=== PATIENT | female | born 1990 | race Caucasian/White ===

== ENCOUNTER 2021-04-03 11:20 | Emergency (ER) | payer OTHER, SELFPAY ==
[2021-04-03] VITALS (9 sets, daily range): BP systolic 102–116; BP diastolic 68–90; PULSE 62–81; RESP 16–18; TEMP 36.6; O2SAT 97–100
--- NOTE | ~2021-04-03 | XR_ITS ---
EXAMINATION: XR chest 1V portable DATE: 04/03/2021 11:53 INDICATION: Left-sided chest pain, tightness and shortness of breath TECHNIQUE: frontal view of the chest was obtained. COMPARISON: Chest radiograph dated 09/10/2019 FINDINGS: The lungs remain clear with no focal airspace opacities, pulmonary edema, pleural effusion or pneumot horax. The cardiomediastinal silhouette is normal. Visualized bones and soft tissues are unremarkable . IMPRESSION: 1. No acute cardiopulmonary disease. Reviewed, dictated and finalized at location A.
--- NOTE | 2021-04-03 11:34 | ECG_ITS ---
Measurements Intervals [place] Rate: 69 P: 12 DE: 122 QRS: 42 QRSD: 105 T: 5 QT: 384 QTc: 414 Interpretive Statements SINUS RHYTHM BORDERLINE T WAVE ABNORMALITY- ANT/INF LEADS BASELINE ARTIFACT- V3-V4 BORDERLINE ECG Electronically Signed On 04-03-2021 12:28:52 CDT by Skyler Harrington D.O.
[2021-04-03 11:53] LABS: Basophils Percent Auto 0.4 % (0.2-1.2); Eosinophils Absolute Auto 0.2 K/mm3 (0-0.3); Eosinophils Percent Auto 2.6 % (0-4.4); Hematocrit 46.4 % (37.0-47.0); Hemoglobin 15.8 g/dL (12.0-15.0); Immature Granulocyte Absolute 0.07 K/mm3 (0.00-0.031); Lymphocytes Absolute Auto 1.87 K/mm3 (0.9-3.2); Lymphocytes Percent Auto 26.6 % (18.3-44.2); Mean Corpuscular HGB Conc 34.1 g/dl (32-36); Mean Corpuscular Hemoglobin 30.2 pg (26-34); Mean Corpuscular Volume 88.7 fl (80-100); Mean Platelet Volume 10.3 fl (7.4-10.4); Monocytes Absolute Auto 0.5 K/mm3 (0.1-0.6); Monocytes Percent Auto 6.8 % (2.6-8.5); Neutrophils Absolute Auto 4.4 K/mm3 (1.3-6.7); Neutrophils Percent Auto 62.6 % (45.5-73.1); Platelet Count Result 228 k/mm3 (150-375); Red Blood Count 5.23 M/mm3 (4.2-5.4); Red Cell Distribution Width 12.4 % (11.5-14.5)
[2021-04-03 11:55] LABS: Add Urine Microscopic? NO; Appearance Urine Clear (Clear); Bilirubin Urine Negative (Negative); Blood Urine Negative (Negative); Color Urine Straw (Yellow); Glucose Urine UA Negative (Negative); Ketones Urine Negative (Negative); Leukocyte Esterase Ur Negative LEU/UL (Negative); Nitrate Urine Negative (Negative); Protein Urine Negative (Negative); Specific Grav Ur 1.009 (1.001-1.035); Urobilinogen Urine Negative mg/dL (<2.0)
[2021-04-03 12:03] LABS: Alanine Aminotransferase 23 U/L (4-35); Albumin Level 4.9 g/dL (3.5-5.1); Alkaline Phosphatase 82 U/L (38-126); Anion Gap 9 mmol/L (8-16); Aspartate Amino Transferase 27 U/L (14-36); Bilirubin,Total 0.5 mg/dL (0.2-1.3); Blood Urea Nitrogen 9 mg/dL (7-17); Calcium 10.3 mg/dL (8.4-10.2); Carbon Dioxide 24 mmol/L (22-30); Chloride 106 mmol/L (98-107); Estimated CRCL calculation 121 ml/min; Estimated Glomerular Filt Rate > 60; Glucose 78 mg/dL (65-105); Potassium 3.4 mmol/L (3.4-5.0); Sodium 139 mmol/L (137-145)
[2021-04-03 12:15] LABS: Troponin I < 0.012 ng/mL (0.000-0.034)
--- NOTE | 2021-04-03 12:23 | ED.GENADULT ---
HPI - General Adult General Chief complaint: Chest Pain Stated complaint: [email or web address] Time Seen by Provider: 04/03/21 11:24 Source: patient History of Present Illness HPI narrative: Patient is a 30 y/o female complaining of left sided chest pain for about 1 week. She describes her pain a pressure and rates it as 4-5/10. There is no alleviating or exacerbating factor. There is no pain radiation. She also has nasal congestion, cough, SOB and loss of taste and smell. She has not been vaccinated against COVID. She was tested for COVID last week and it was negative. Related Data Allergies Allergy/AdvReac Type Severity Reaction Status Date / Time hydromorphone AdvReac Agitated Verified 04/03/21 11:40 Review of Systems Constitutional: Constitutional: Denies chills, Denies fever(s), Denies headache(s) and Denies weakness Eyes: Eyes: Denies blurry vision ENT: Denies headache(s), Reports nasal congestion and Denies neck pain Cardiovascular: Cardiovascular: Reports chest pain and Reports dyspnea Respiratory: Respiratory: Reports cough and Reports dyspnea Gastrointestinal: Gastrointestinal: Denies abdominal pain, Denies diarrhea, Denies nausea and Denies vomiting Genitourinary: Genitourinary: Denies hematuria and Denies dysuria Musculoskeletal: Musculoskeletal: Denies back pain and Denies neck pain Neurologic: Denies headache(s) and Denies weakness PMFSH Past Medical History Medical History Migraine Trichomoniasis Surgical History Surgical History Hx of cholecystectomy Social History Social History Smoking packs per day: 1 Smoking cigarettes per day: 20.0 Smoking status: Current every day smoker Gender identity (if verbalized by the patient): Female Exam Const: General: no acute distress and well developed Orientation/consciousness: oriented to person, oriented to place, oriented to time and patient oriented x3 HENMT: Head: normocephalic Ears: external ears normal General nose exam: Normal external nose present Eyes: General: appearance normal, both eyes and all related structures Conjunctivae: conjunctivae normal Neck: Neck: normal visual inspection and full ROM Chest: Chest palpation & inspection: normal inspection of the chest and no tenderness Resp: Effort & Inspection: normal respiratory effort Auscultation: clear to auscultation bilaterally Cardio: Rate: regular rate Rhythm: regular rhythm GI: GI Palp: No abdominal tenderness and Yes Soft to palpation Skin: General skin exam: normal color and turgor normal Neuro: General: oriented to person, oriented to place, oriented to time and patient oriented x3 Cognition (Neuro): normal cognition Extrem: General: normal to inspection, full ROM and no pedal edema Psych: Appearance: grossly normal Mental Status: mental status grossly normal Affect: normal affect Course Vital Signs Vital signs: Vital Signs Temperature 36.6 C 04/03/21 11:25 Pulse Rate 81 04/03/21 11:25 Respiratory Rate 18 04/03/21 11:25 Blood Pressure 116/69 04/03/21 11:25 Pulse Oximetry 100 04/03/21 11:25 Temperature 36.6 C 04/03/21 11:25 Pulse Rate 78 04/03/21 15:00 Respiratory Rate 18 04/03/21 15:00 Blood Pressure 105/75 04/03/21 15:00 Pulse Oximetry 100 04/03/21 15:00 Medical Decision Making Vital Signs Vital Signs: Vital Signs Temperature 36.6 C 04/03/21 11:25 Pulse Rate 81 04/03/21 11:25 Respiratory Rate 18 04/03/21 11:25 Blood Pressure 116/69 04/03/21 11:25 Pulse Oximetry 100 04/03/21 11:25 Temperature 36.6 C 04/03/21 11:25 Pulse Rate 78 04/03/21 15:00 Respiratory Rate 18 04/03/21 15:00 Blood Pressure 105/75 04/03/21 15:00 Pulse Oximetry 100 04/03/21 15:00 Lab Data Result diagrams: 04/03/21 11:39 04/03/21 11:39
[2021-04-03 17:06] LABS: Troponin I < 0.012 ng/mL (0.000-0.034)
[2021-04-04 17:38] LABS: SARS-CoV-2 RNA PCR Negative
== END 2021-04-03 18:10 | disposition home or self-care (01) ==
PROVIDERS: Emergency Provider Emergency Medicine
DX: R07.89 Other chest pain (principal); J06.9 Acute upper respiratory infection, unspecified; Z20.822 Contact with and (suspected) exposure to COVID-19; F17.210 Nicotine dependence, cigarettes, uncomplicated; R94.31 Abnormal electrocardiogram [ECG] [EKG]
CPT/HCPCS: 36415; 71045; 80053; 81003; 81025; 84484; 85025; 85380; 93005; 99284; C9803; U0003; U0005

== ENCOUNTER 2021-08-24 20:22 | Emergency (ER) | payer OTHER, MEDICAID, SELFPAY ==
--- NOTE | ~2021-08-24 | XR_ITS ---
EXAMINATION: XR hand RT min 3V DATE: 08/24/2021 21:50 INDICATION: Right hand pain. Injury. TECHNIQUE: 3 views of right hand were obtained. COMPARISON: None. FINDINGS: Bone alignment is normal. No fracture. There is mild osteoarthritis of first metacarpophala ngeal joint and first interphalangeal joint. IMPRESSION: 1. Mild polyarticular osteoarthritis. Reviewed, dictated and finalized at location A. 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
--- NOTE | ~2021-08-24 | CT_ITS ---
EXAMINATION: CT facial & cervical spine wo DATE: 08/24/2021 22:00 INDICATION: Head injury. Neck pain. TECHNIQUE: Computed tomography (CT) of the maxillofacial region and cervical spine was performed with out intravenous contrast. Automated exposure control and iterative reconstruction technique were empl oyed. The dose-length product was 365.65 mGy-cm. COMPARISON: None FINDINGS: MAXILLOFACIAL CT: There is a fracture of right nasal process of maxilla. There is rightward deviation of the nasal sept um with a right lateral spur. There is mild mucosal thickening in the paranasal sinuses. There is rig ht periorbital soft tissue swelling. The orbits are normal. CERVICAL SPINE CT: There is kyphosis of cervical spine. Vertebral body heights and intervertebral disc heights are bree l. At C7-T1, there is mild right and moderate left facet joint osteoarthritis. At C7-T1, there is mil d left neural foraminal stenosis. No central canal stenosis. IMPRESSION: 1. Fracture of right nasal process of maxilla. 2. Mild cervical spondylosis. Reviewed, dictated and finalized at location A. [facility]
--- NOTE | ~2021-08-24 | CT_ITS ---
EXAMINATION: CT brain wo con DATE: 08/24/2021 21:59 INDICATION: Head injury. TECHNIQUE: Computed tomography (CT) of the head was performed without intravenous contrast. The mA wa s adjusted according to patient size. Iterative reconstruction technique was employed. The dose-lengt h product was 605.33 mGy-cm. COMPARISON: Head CT 09/10/2019 FINDINGS: There is no intracranial hemorrhage, acute infarction, or abnormal intracranial mass lesion . The ventricles are normal in size. There is mild mucosal thickening in the paranasal sinuses. There is right periorbital soft tissue swelling. The orbits are normal. The mastoid air cells are normal. IMPRESSION: 1. Normal brain. Reviewed, dictated and finalized at location A. NG ROOM SUPERVISOR IMPRESSION: 1. Normal brain.
[2021-08-24 20:28] VITALS: BP 122/72; PULSE 90; RESP 20; TEMP 35.9; O2SAT 100
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
[2021-08-24] MEDS: HYDROcodone/acetaminophen (*CRX) 5-325 MG TABLET 1 TAB PO (22:43)
== END 2021-08-24 22:58 | disposition home or self-care (01) ==
PROVIDERS: Emergency Provider Emergency Medicine
DX: S02.2XXA Fracture of nasal bones, initial encounter for closed fracture (principal); S60.221A Contusion of right hand, initial encounter; R56.9 Unspecified convulsions; Z86.69 Personal history of other diseases of the nervous system and sense organs; X58.XXXA Exposure to other specified factors, initial encounter
CPT/HCPCS: 70450; 70486; 72125; 73130; 99284; A9270

== ENCOUNTER 2023-10-27 09:12 | Emergency (ER) | payer OTHER, SELFPAY ==
[2023-10-27] VITALS (11 sets, daily range): BP systolic 102–107; BP diastolic 63–83; PULSE 78–98; RESP 7–24; TEMP 36.8; O2SAT 97–100
--- NOTE | ~2023-10-27 | XR_ITS ---
EXAMINATION: XR chest 1V portable INDICATION: Generalized chest pain TECHNIQUE: Portable AP chest at 0929 hours COMPARISON: 04/03/2021 FINDINGS: The lungs are free of acute opacities. No pleural effusion or pneumothorax. The cardiomedia stinal silhouette is normal. IMPRESSION: 1. No acute cardiopulmonary abnormality. Reviewed, dictated and finalized at location F. SPECIALIST
--- NOTE | 2023-10-27 09:19 | ECG_ITS ---
Measurements Intervals [place] Rate: 86 P: 47 DC: 153 QRS: 6 QRSD: 86 T: 30 QT: 377 QTc: 453 Interpretive Statements SINUS RHYTHM COMPARED TO ECG 04/03/2021 11:30:05 NO SIGNIFICANT CHANGES Electronically Signed On 10-27-2023 11:41:30 PERSONAL LINES ADVISOR by James Siddiqi M.D.
--- NOTE | 2023-10-27 09:23 | ED.CHESTPAIN ---
HPI - Chest Pain General Chief Complaint: Chest Pain Stated Complaint: chest pain Time Seen by Provider: 10/27/23 09:14 Source: patient Mode of arrival: ambulatory Limitations: no limitations History of Present Illness HPI narrative: Nayely is a 33-year-old female patient presenting to the clinic today with complaints of left-sided chest pain/tightness and some mid back pain that just started this morning at 8:00 a.m. Does have some shortness of breath associated with the chest discomfort. Denies any recreational drug use. Admits to vaping and marijuana. Rates her pain currently a 7/10. Pain does not radiate into the jaw or down either arm. Related Data Allergies Allergy/AdvReac Type Severity Reaction Status Date / Time hydromorphone AdvReac Agitated Verified 10/27/23 09:22 Review of Systems Review of Systems: Pertinent positives per HPI. Patient denies any fever, chills, rash, headache, visual changes, dizziness, cough, palpitations, nausea, vomiting, diarrhea, constipation, abdominal pain, or any urinary issues. [facility] Past Medical History Medical History (Updated 10/27/23 @ 11:07 by Kulwinder Bowling APRN) Migraine Seizure Trichomoniasis Surgical History Surgical History H/O breast augmentation Hx of cholecystectomy Social History Social History Social History: Her toxicology screen was positive for amphetamines and marijuana. Patient not answering questions Smoking packs per day: 1 Smoking cigarettes per day: 20.0 Smoking status: Never smoker Alcohol intake: unknown Substance use: unknown Other substance usage details: states she doesn't Living arrangements: other Additional living arrangements comments: Not known Gender identity (if verbalized by the patient): Female Spiritual care concerns: No Agree to blood products: Yes Comments At the time of my signature, I reviewed and agree with the nursing past medical, surgical, social, and family history. There is no relevant family history pertinent to the patient complaint. Exam Narrative: General: Well-developed, obese, anxious appearing, tearful Head: Normocephalic, atraumatic Eyes: Pupils equally round and reactive to light bilaterally, EOM intact, sclera and conjunctive clear, no discharge, lids normal Ears: TMs intact and clear, ear canals clear, no drainage, grossly hearing normal. Nose: Nares patent, no discharge, no inflammation, no sinus tenderness. Mouth: Oral pharynx without lesions or masses, good dentition, MMM. Neck: Supple, trachea midline, no enlargement of anterior or posterior cervical nodes, no thyroid masses or goiter palpable. Cardio: Regular rate and rhythm, s1 and s2 normal, no murmur appreciated. Resp: Clear to auscultation bilaterally, no rhonchi, rales, wheezing or rubs Abdomen: Soft, pliable, nondistended, bowel sounds present all 4 quadrants, nontender to palpation, no CVAT tenderness, no organomegaly Course Course Emergency Course: Portions of this record may have been created with voice recognition software. Vital Signs Vital signs: Vital Signs Temperature 36.8 C 10/27/23 09:19 Pulse Rate 90 10/27/23 09:19 Respiratory Rate 16 10/27/23 09:19 Blood Pressure 107/63 10/27/23 09:19 Pulse Oximetry 98 10/27/23 09:19 Temperature 36.8 C 10/27/23 09:19 Pulse Rate 78 10/27/23 09:21 Respiratory Rate 16 10/27/23 09:19 Blood Pressure 107/63 10/27/23 09:19 Pulse Oximetry 98 10/27/23 09:19 Vital signs reviewed MDM - Chest Pain MDM Narrative Medical decision making narrative: At the time of visit patient is resting comfortably on the exam table. Patient appears to be nontoxic. EKG: Normal sinus rhythm heart rate without ST elevation or depression noted. No T-wave inversion. Labs: CBC shows white blood cell count 7.9, H&
[2023-10-27 09:32] LABS: Basophils Percent Auto 0.4 % (0.2-1.2); Eosinophils Absolute Auto 0.1 K/mm3 (0-0.3); Eosinophils Percent Auto 0.9 % (0-4.4); Hematocrit 41.4 % (37.0-47.0); Hemoglobin 13.7 g/dL (12.0-15.0); Immature Granulocyte Absolute 0.03 K/mm3 (0.00-0.031); Immature Granulocyte Percent A 0.4 % (0-0.5); Lymphocytes Absolute Auto 0.25 K/mm3 (0.9-3.2); Lymphocytes Percent Auto 3.2 % (18.3-44.2); Mean Corpuscular HGB Conc 33.1 g/dl (32-36); Mean Corpuscular Hemoglobin 28.9 pg (26-34); Mean Corpuscular Volume 87.3 fl (80-100); Mean Platelet Volume 9.9 fl (7.4-10.4); Monocytes Absolute Auto 0.7 K/mm3 (0.1-0.6); Monocytes Percent Auto 8.5 % (2.6-8.5); Neutrophils Absolute Auto 6.9 K/mm3 (1.3-6.7); Neutrophils Percent Auto 86.6 % (45.5-73.1); Platelet Count Result 222 k/mm3 (150-375); Red Blood Count 4.74 M/mm3 (4.2-5.4); Red Cell Distribution Width 12.8 % (11.5-14.5); White Blood Count 7.9 K/mm3 (4.5-10.0)
[2023-10-27] MEDS: ACETAMINOPHEN 500 MG TABLET 1000 MG PO (09:36)
[2023-10-27 09:41] LABS: Alanine Aminotransferase 15 U/L (6-35); Albumin Level 4.5 g/dL (3.5-5.1); Alkaline Phosphatase 73 U/L (38-126); Anion Gap 7 mmol/L (8-16); Aspartate Amino Transferase 20 U/L (14-36); Bilirubin,Total 0.8 mg/dL (0.2-1.3); Blood Urea Nitrogen 6 mg/dL (7-17); Calcium 9.2 mg/dL (8.4-10.2); Carbon Dioxide 23 mmol/L (22-30); Chloride 103 mmol/L (98-107); Estimated CRCL calculation 98 ml/min; Estimated Glomerular Filt Rate > 60; Glucose 92 mg/dL (65-110); Lipase 41 U/L (23-300); Potassium 3.6 mmol/L (3.4-5.0); Sodium 133 mmol/L (137-145)
[2023-10-27 09:42] LABS: Prothrombin Time 13.3 Seconds (11.1-14.7)
[2023-10-27 09:45] LABS: Appearance Urine Clear (Clear); Bilirubin Urine Negative (Negative); Blood Urine Negative (Negative); Color Urine Yellow (Yellow); Glucose Urine UA Negative (Negative); Ketones Urine Negative (Negative); Leukocyte Esterase Ur Negative LEU/UL (Negative); Nitrate Urine Negative (Negative); Protein Urine Negative (Negative); Specific Grav Ur 1.015 (1.001-1.035); Urobilinogen Urine 0.2 mg/dL (<2.0); pH Urine 5.5 (5.0-9.0)
[2023-10-27 09:47] LABS: Add Urine Microscopic? NO
[2023-10-27 09:53] LABS: Troponin I < 0.012 ng/mL (0.000-0.034)
[2023-10-27 10:01] LABS: Amphetamine Screen Urine Negative (Negative); Barbiturate Screen Urine Negative (Negative); Benzodiazepines Screen Urine Negative (Negative); Cannabinoid Screen Urine Positive (Negative); Cocaine Screen Urine Negative (Negative); Methadone Screen Urine Negative (Negative); Opiate Screen Urine Negative (Negative); Phencyclidine Screen Urine Negative (Negative)
[2023-10-27] MEDS: LORazepam INJ (*CRX) 2 MG/ML VIAL 0.5 MG IV PUSH (10:23)
== END 2023-10-27 11:14 | disposition home or self-care (01) ==
PROVIDERS: Emergency Provider Nurse Practitioner Family
DX: F41.9 Anxiety disorder, unspecified (principal); R07.89 Other chest pain; I10 Essential (primary) hypertension; E11.9 Type 2 diabetes mellitus without complications; F17.210 Nicotine dependence, cigarettes, uncomplicated
CPT/HCPCS: 36415; 71045; 80053; 80307; 81003; 81025; 83690; 84484; 85025; 85610; 85730; 93005; 96374; 99284; A9270; J2060

== ENCOUNTER 2024-10-23 17:28 | Emergency (ER) | payer OTHER, SELFPAY ==
--- NOTE | 2024-10-23 17:39 | ED.URI ---
HPI - URI/Sore Throat General Chief Complaint: Upper Respiratory Infection Stated Complaint: Sinus Time Seen by Provider: 10/23/24 18:21 Source: patient and RN notes reviewed Mode of arrival: ambulatory Limitations: no limitations History of Present Illness HPI Narrative: 34-year-old female presents with concern for 2 month history of nasal congestion, drainage, sinus pain and pressure. She reports she has tried multiple [id number] medications without relief MD elicited complaint: nasal congestion and sinus pain Related Data Allergies Allergy/AdvReac Type Severity Reaction Status Date / Time hydromorphone AdvReac Agitated Verified 10/23/24 17:31 Review of Systems Review of Systems: CONSTITUTIONAL: Denies malaise, chills, sweats, or fever. EYES: Denies visual changes, redness, or discharge. ENT: Reports rhinorrhea, congestion, sinus pain CARDIOVASCULAR: Denies chest pain, palpitations, or edema. RESPIRATORY: Reports cough. Denies dyspnea. GASTROINTESTINAL: Denies abdominal pain, nausea, vomiting, diarrhea SKIN: Denies rash or itching. MUSCULOSKELETAL: Denies myalgia. NEUROLOGIC: Denies headache. All systems reviewed & are unremarkable except as noted in HPI and below PMFSH Past Medical History Medical History (Updated 10/23/24 @ 18:25 by Judit Freire NP) Seizure Trichomoniasis Migraine Surgical History Surgical History H/O breast augmentation Hx of cholecystectomy Social History Social History Social History: Her toxicology screen was positive for amphetamines and marijuana. Patient not answering questions Smoking packs per day: 1 Smoking cigarettes per day: 20.0 Smoking status: Never smoker Alcohol intake: unknown Substance use: unknown Other substance usage details: states she doesn't Living arrangements: other Additional living arrangements comments: Not known Gender identity (if verbalized by the patient): Female Spiritual care concerns: No Agree to blood products: Yes Comments At time of signature, agree with nursing past medical, surgical, social and family history. There is no relevant family history pertinent to the presenting complaint Exam Narrative: GENERAL: Well-appearing, well-nourished, and in no acute distress. HEAD: Normocephalic EYES: PERRLA, conjunctivae clear ENT: Nares clear, turbinates edematous and erythematous. Mucous membranes moist. TM pearly granger with dull light reflex bilaterally; no tragal tenderness. Oropharynx not erythematous without lesions. Tonsils not enlarged and without exudate, no drooling, no hoarseness, no trismus, uvula midline. NECK: Supple. No lymphadenopathy CHEST: Clear to auscultation, breath sounds equal. No wheezing, rhonchi, rales, or stridor. No respiratory distress, speaks in full sentences. HEART: Regular rate and rhythm. No murmur heard. SKIN: Warm, dry, no rash. NEURO: Alert and oriented x3. PSYCH: Normal mood and affect Course Course Emergency Course: Patient is aware of diagnosis, understands and agrees to treatment plan. Anticipatory guidance given. Patient agrees to follow-up as directed and is aware of reasons to seek care at the emergency department. Portions of this record may have been created with voice recognition software Level of Care: Express Care Visit Vital Signs Vital signs: Reviewed. MDM - URI/Sore Throat MDM Narrative Medical decision making narrative: Differential diagnosis considered: Nielsen virus, strep pharyngitis, allergic rhinitis, upper respiratory tract infection, sinusitis, rhinosinusitis, nasopharyngitis. viral pharyngitis, otitis media, otitis externa, pneumonia, bronchitis, viral cough syndrome, viral syndrome, and influenza. Exam findings show no acute concerns or changes; patient is non-toxic appearing and is in no distress. Patient is appropriate for outpatient treatment and follow-up. Lab Data Attestation: I reviewed the patient's lab results. Critical Care Time Critical Care Time Critical Care Time: No Discharge Plan Discharge Clinical Impression: Acute bacterial sinusitis Patient Disposition: Home, Self-Care Condition: Stable Instructions: Antibiotic Form, Sinusitis (ED) Additional Instructions: Take medication as prescribed Nonprescription pain medications, such as acetaminophen (eg, Tylenol) or ibuprofen (eg, Motrin, Advil), are recommended for pain. Flushing the nose and sinuses with a saline solution several times per day has been proven to decrease pain associated with congestion and shorten the duration of symptoms. Nasal steroids (such as Flonase, 2 sprays in each nostril daily) can help to reduce swelling inside the nose, usually within two to three days. These drugs have few side effects and relieve symptoms in most people. Medications to thin secretions (such as guaifenesin) may help to clear mucus. Please follow-up with your primary care doctor in the next 1-2 days. If you cannot follow-up with your primary care doctor please go to the ED for any urgent issues. If you have any worsening of symptoms or any other concerns please go to the ED immediately. Patient Language: [place] Prescriptions: New methylprednisolone [Medrol (Tony)] 4 mg tablets,dose pack See Rx Instructions .ROUTE .COMPLEX Qty: 21 0RF Rx Instructions: orally per package directions amoxicillin-pot clavulanate 875-125 mg tablet 1 tablet PO Q12H 10 Days Qty: 20 0RF Follow-up/Referrals: PHYSICIAN,PSYCHOLOGIST DEVELOPMENTAL [Primary Care Provider] - Time of Disposition: 18:26
[2024-10-23 17:40] VITALS: BP 108/57; PULSE 79; RESP 18; TEMP 37.1; O2SAT 98
== END 2024-10-23 18:30 | disposition home or self-care (01) ==
PROVIDERS: Emergency Provider Nurse Practitioner
DX: J01.90 Acute sinusitis, unspecified (principal)
CPT/HCPCS: 99213; G0463

== ENCOUNTER 2024-11-24 12:43 | Emergency (ER) | payer OTHER, SELFPAY ==
[2024-11-24 12:48] VITALS: BP 128/71; PULSE 81; RESP 16; TEMP 36.8; O2SAT 100
--- NOTE | 2024-11-24 13:00 | ED.URI ---
HPI - URI/Sore Throat General Chief Complaint: Upper Respiratory Infection Stated Complaint: sinus pain,pressure,sneezing,TIJERINA,dizzy Time Seen by Provider: 11/24/24 13:01 Source: patient, RN notes reviewed and old records reviewed Mode of arrival: ambulatory Limitations: no limitations History of Present Illness HPI Narrative: 34-year-old female presents to the [facility] with complaints continued sinus pain pressure, sneezing for 3 months. Was seen in the urgent 10/23/2024 for the same complaint, had been going on for 2 months, was prescribed a steroid and antibiotic. Patient is stating she is not getting any relief. Onset (ago): month(s) (3) Treatments prior to arrival: cold medicine Related Data Allergies Allergy/AdvReac Type Severity Reaction Status Date / Time hydromorphone AdvReac Agitated Verified 11/24/24 12:53 Review of Systems Review of Systems: All systems reviewed & are unremarkable except as noted in HPI and below Constitutional: Constitutional: Reports no additional constitutional complaints ENT: Reports as per HPI Cardiovascular: Cardiovascular: Reports no additional cardiovascular complaints, Denies chest pain and Denies dyspnea Respiratory: Respiratory: Reports no additional respiratory complaints, Denies chest congestion, Denies cough and Denies dyspnea Musculoskeletal: Musculoskeletal: Reports no additional musculoskeletal complaints Integumentary/Breasts: Skin/Breast: Reports system reviewed and no additional complaints, except as docu PMFSH Past Medical History Medical History (Updated 11/24/24 @ 19:24 by Judit Pereira APRN) Seizure Trichomoniasis Migraine Surgical History Surgical History H/O breast augmentation Hx of cholecystectomy Social History Social History Social History: Her toxicology screen was positive for amphetamines and marijuana. Patient not answering questions Smoking packs per day: 1 Smoking cigarettes per day: 20.0 Smoking status: Never smoker Alcohol intake: unknown Substance use: unknown Other substance usage details: states she doesn't Living arrangements: other Additional living arrangements comments: Not known Gender identity (if verbalized by the patient): Female Spiritual care concerns: No Agree to blood products: Yes Comments At the time of my signature, I reviewed and agree with the nursing past medical, surgical, social, and family history. There is no relevant family history pertinent to the patient complaint. Exam Const: General: cooperative, no acute distress, well developed, alert, tired appearing, uncomfortable and well nourished Nutritional Appearance: well nourished Orientation/consciousness: patient oriented x3 Limitations: no limitations HENMT: Head: normal to inspection Ears: hearing grossly normal bilaterally, external ears normal, EAC's normal, mastoids normal, no periauricular adenopathy and TM abnormal with fluid behind the TM bilateral Face/Nose/Sinus: Nasal discharge present clear Mouth: Yes Normal oral and palatal mucosa present, Yes lip normal, Yes tongue normal and Yes moist mucous membranes Throat: posterior oropharynx normal, uvula midline, postnasal drainage and no uvular edema Eyes: General: appearance normal, both eyes and all related structures Alignment and Position: alignment normal Neck: Neck: normal visual inspection, full ROM, no lymphadenopathy and no meningeal signs Chest: Chest palpation & inspection: normal inspection of the chest Resp: Effort & Inspection: normal respiratory effort and able to speak in complete sentences Auscultation: clear to auscultation bilaterally, no crackles, no rales, no rhonchi and no wheezes Cardio: Rate: regular rate Skin: General skin exam: normal color and no rashes or lesions noted Neuro: General: patient oriented x3, gait normal, moves all extremities and no meningeal signs Cognition (Neuro): normal cognition Speech: normal speech Gait exam (Neuro): Normal gait present Extrem: General: normal to inspection, full ROM, capillary refill normal and normal gait Psych: Appearance: grossly normal and well kempt Mental Status: mental status grossly normal Speech and movement: Normal speech and movement present and Clear speech present Affect: normal affect Attitude: cooperative Course Course Level of Care: Express Care Visit Vital Signs Vital signs: Vital Signs Temperature 98.2 F 11/24/24 12:48 Pulse Rate 81 11/24/24 12:48 Respiratory Rate 16 11/24/24 12:48 Blood Pressure 128/71 11/24/24 12:48 Pulse Oximetry 100 11/24/24 12:48 Oxygen Delivery Room Air 11/24/24 12:48 Temperature 98.2 F 11/24/24 12:48 Pulse Rate 81 11/24/24 12:48 Respiratory Rate 16 11/24/24 12:48 Blood Pressure 128/71 11/24/24 12:48 Pulse Oximetry 100 11/24/24 12:48 Oxygen Delivery Room Air 11/24/24 12:48 Reviewed MDM - URI/Sore Throat MDM Narrative Medical decision making narrative: Patient sitting in exam room. Nontoxic, vitals stable. Patient in no acute distress. Patient presents with 3 month history, treatment failure 1 month ago of URI, sinusitis symptoms. Has not followed up with primary care provider. Requesting names of ENT. Discussed in great detail nasal irrigations, hizb-aid-zoiqoog products, taking them more than 1 or 2 days especially allergy medication in using Flonase. Will also prescribe. Patient is appropriate for outpatient treatment with close follow-up preferably with ENT for further evaluation, testing and treatment Discharge instructions reviewed with patient, as well as provided in writing per nursing staff. The instructions also include specific and strict return/GO TO THE ER as well as f/u information. All questions have been answered, and the patient deny any further questions with discharge and discharge plan. Some parts of this dictation were generated by voice recognition software and may contain typographical and/or grammatical inaccuracies. Differential Diagnosis Differential diagnosis: Likely upper respiratory infection, otitis media, sinusitis, viral infection, bronchitis, influenza and pharyngitis Critical Care Time Critical Care Time Critical Care Time: No Discharge Plan Discharge Clinical Impression: Sinusitis Qualifiers: Sinusitis location: pansinusitis Chronicity: acute Recurrence: not specified as recurrent Qualified Code(s): J01.40 - Acute pansinusitis, unspecified Patient Disposition: Home, Self-Care Condition: Stable Instructions: Antibiotic Form, Sinusitis (ED) Additional Instructions: It is very important to treat your symptoms. Drink plenty of water, Gatorade, Pedialyte, ice pops or Jell-O. -Alternate Tylenol and Motrin per package directions for fever or pain. You can alternate every 4 hours -Antihistamine medication such as Zyrtec/Claritin/Nicolasa during the day can help improve symptoms. Be sure to take these on a daily basis -doing daily nasal irrigations can help relieve pressure your sinuses. Things like a Neti pot or NeilMed nasal irrigation. it is best to do nasal irrigations while in a hot shower. After the nasal irrigation, use Flonase as prescribed twice daily for 5 days then daily -Use Flonase twice a day for 5 days then daily to help reduce the inflammation and dry up your sinuses. -You can also use Mucinex. Be sure to drink plenty of water with this medication at least 8 ounces with every dose and it is important to drink 8 to 10 glasses of water per day. Water is a natural decongestant -Frequent hand washing or hand prom burn off operator is one of the best ways to prevent spread of infection. -Using a vaporizer or humidifier at night will also help thin secretions and help with coughing up phlegm. -Follow up with primary care provider in 7-10 days if condition is not improving - For new or worsening symptoms go directly to the nearest ER Patient Language: Stateless Prescriptions: New doxycycline monohydrate 100 mg tablet 100 mg PO BID Qty: 14 0RF fluticasone propionate [24 Hour Allergy Relief] 50 mcg/actuation spray,suspension 2 spray intranasal DAILY Qty: 16 0RF Rx Instructions: administer into each nostril loratadine 10 mg tablet 10 mg PO DAILY Qty: 30 0RF Follow-up/Referrals: Nicolas Cedillo M.D. [Physician] - Guillermo Galicia MD [Physician] - PHYSICIAN,[employer] [Primary Care Provider] - Stand Alone Forms: Work/School Release IP Time of Disposition: 13:17
== END 2024-11-24 13:20 | disposition home or self-care (01) ==
PROVIDERS: Emergency Provider Nurse Practitioner
DX: J01.40 Acute pansinusitis, unspecified (principal)
CPT/HCPCS: 99213; G0463

== ENCOUNTER 2025-06-03 15:32 | Emergency (ER) | payer OTHER, SELFPAY ==
[2025-06-03 15:41] VITALS: BP 103/63; PULSE 74; RESP 16; TEMP 36.5; O2SAT 97
--- NOTE | 2025-06-03 16:30 | ED_ITS ---
HPI - Female Genitourinary General Chief complaint: Skin/Abscess/Foreign Body Stated complaint: Vaginal Pain Time Seen by Provider: 06/03/25 16:00 Source: patient and RN notes reviewed Mode of arrival: ambulatory Limitations: no limitations History of Present Illness HPI Narrative: 34-year-old female presents Express Care complaining of lump on her labia the last week. Patient says it is on the upper part of her left labia. Patient denies pain painful to touch reports that is uncomfortable when it is rubbing on her clothing or jeans. She denies any vaginal discharge, pelvic pain, vaginal bleeding, urinary symptoms, abdominal pain, fevers, aches, chills, nausea vomiting, diarrhea, or any other symptoms. Patient cannot get in her OBGYN for the next 2 weeks she says. Patient likely STD tested. Related Data Home Medications ?Medication ?Instructions ?Recorded ?Confirmed ?Last Taken ?Type tirzepatide (weight loss) 5 mg/0.5 mg subcut 06/03/25 Unknown History mL subcutaneous pen injector ([employer]osCool) Allergies Allergy/AdvReac Type Severity Reaction Status Date / Time hydromorphone AdvReac Agitated Verified 11/24/24 12:53 Review of Systems Review of Systems: CONSTITUTIONAL: Denies fever, chills, or sweats. EYES: Denies visual changes, redness, or discharge. ENT: Denies rhinorrhea, congestion, sore throat, or otalgia. CARDIOVASCULAR: Denies chest pain, palpitations, or edema. RESPIRATORY: Denies cough or dyspnea. GASTROINTESTINAL: Denies abdominal pain, nausea, vomiting, or diarrhea. GENITOURINARY: Denies dysuria, pelvic pain, vaginal bleeding, vaginal discharge, or hematuria. Positive for lesion SKIN: Denies rash or itching. MUSCULOSKELETAL: Denies back pain, joint pain, or myalgia. NEUROLOGIC: Denies headache, numbness, or weakness. PSYCHIATRIC: Denies anxiety or depression. All other systems reviewed are negative, except as documented in HPI. [facility] Past Medical History Medical History Seizure Trichomoniasis Migraine Surgical History Surgical History H/O breast augmentation Hx of cholecystectomy Social History Social History Social History: Her toxicology screen was positive for amphetamines and marijuana. Patient not answering questions Smoking packs per day: 1 Smoking cigarettes per day: 20.0 Smoking status: Never smoker Alcohol intake: unknown Substance use: unknown Other substance usage details: states she doesn't Living arrangements: other Additional living arrangements comments: Not known Gender identity (if verbalized by the patient): Female Spiritual care concerns: No Agree to blood products: Yes Comments At the time of my signature, I reviewed and agree with the nursing past medical, surgical, social, and family history. There is no relevant family history pertinent to the patient complaint. Exam Narrative: GENERAL: This is a well-nourished, well-developed adult, in no apparent distress. They are non ill-appearing, nontoxic appearing. HEAD: normocephalic, atraumatic. EYES: Sclera clear/white. Conjunctiva normal. Vision is grossly intact. Extraocular movements intact EARS: External ears normal, Hearing grossly intact. NOSE: External nose normal THROAT: Mucous membranes moist, NECK: Neck supple, CARDIOVASCULAR: Regular rate and rhythm RESPIRATORY: Respiratory rate normal, respiratory effort nonlabored, no respiratory distress GENITAL URINARY: External vagina: Right labia unremarkable. Left upper labia majora with a vesicular lesion measuring approximately 1.5 cm x 1.5 cm. Is nontender to palpate and it is fluctuant. No redness. No lesion present to the left labia minora. No Bartholin's cyst. Perineum unremarkable. Vaginal opening without any drainage redness, or swelling. SKIN: warm, Dry, intact with no suspicious lesions or rash, good texture and turgor. NEURO: awake, alert, and oriented to person, place and time. There were no obvious focal neurologic abnormalities. EXTREMITIES: No joint tenderness, effusion, or edema noted. Course Course Emergency Course: Portions of this record may have been created with voice recognition software Level of Care: Express Care Visit Vital Signs Vital signs: Vital Signs Temperature 97.7 F 06/03/25 15:41 Pulse Rate 74 06/03/25 15:41 Respiratory Rate 16 06/03/25 15:41 Blood Pressure 103/63 06/03/25 15:41 Pulse Oximetry 97 06/03/25 15:41 Oxygen Delivery Room Air 06/03/25 15:41 Temperature 97.7 F 06/03/25 15:41 Pulse Rate 74 06/03/25 15:41 Respiratory Rate 16 06/03/25 15:41 Blood Pressure 103/63 06/03/25 15:41 Pulse Oximetry 97 06/03/25 15:41 Oxygen Delivery Room Air 06/03/25 15:41 Reviewed MDM - Female Genitourinary MDM Narrative Medical decision making narrative: Jacquelyn SUAREZ was present in room as placement specialist tearing vaginal exam. Lesion is present to the upper left labia majora. Does not appear to be of arthrodesis given location. Is nontender, it is singular lesion, and no drainage or ulceration present. Unable to obtain herpes swab is sign actively draining. Does not appear to be consistent with herpes infection. Appears to be a labial cyst. Advised close follow-up with her OBGYN. Will cover her with doxycycline. Patient would like to be tested for STDs. Urine was obtain to test for Trichomonas, chlamydia, gonorrhea. Testing is pending, patient will be contac michael with results. Will await treatment until results upper turn. Patient with taking doxycycline to cover any skin or soft tissue infection over also cover for chlamydia infection. Discussed physical exam findings. Advised supportive measures and signs/symptoms to go to the ER. Pt is appropriate for outpt treatment and f/u. Differential Diagnosis Differential diagnosis: Likely vaginitis, cyst of Bartholin's gland and other (Sebaceous cyst, folliculitis, labial cyst) Critical Care Time Critical Care Time Critical Care Time: No Discharge Plan Discharge Clinical Impression: Labial cyst Patient Disposition: Home Condition: Stable Instructions: Antibiotic Form, Cyst (ED) Additional Instructions: ?Your urine sample has been sent off to test for gonorrhea, chlamydia, and trichomonas infections. ?These tests can take up to 1-3 days to come back. You Will be notified the results once they have resulted. Please remain abstinent until you know your results or have completed full treatment for an STD. Please take the doxycycline as directed. Please wear sunscreen if you are going to be outside while taking doxycycline. May also do warm compresses 10-15 minute few times a day to the affected area do Sitz baths daily. Follow-up with OBGYN in 3-5 days. If your symptoms worsen, you developed fever, abdominal pain, nausea, vomiting, vaginal bleeding, pelvic pain or any other concerns please go to the ER immediately. Patient Language: Egyptian Prescriptions: New doxycycline monohydrate 100 mg capsule 100 mg PO BID 7 Days Qty: 14 0RF No Action Zepbound 5 mg/0.5 mL pen injector SUBCUT doxycycline monohydrate 100 mg tablet 100 mg PO BID Qty: 14 0RF fluticasone propionate [24 Hour Allergy Relief] 50 mcg/actuation spray,suspension 2 spray intranasal DAILY Qty: 16 0RF Rx Instructions: administer into each nostril loratadine 10 mg tablet 10 mg PO DAILY Qty: 30 0RF Follow-up/Referrals: Marlo Shahid MD [Primary Care Provider, S[employer]ER S[employer]WRITER] Time of Disposition: 16:21
[2025-06-03 20:17] LABS: Trichomonas Vag PCR NOT DETECTED (NOT DETECTE)
== END 2025-06-03 16:24 | disposition home or self-care (01) ==
PROVIDERS: PCP Obstetrics & Gynecology
DX: N90.7 Vulvar cyst (principal); Z11.3 Encounter for screening for infections with a predominantly sexual mode of transmission
CPT/HCPCS: 87491; 87591; 87661; 99213; G0463